=== PATIENT | female | born 1980 | race Two or more races ===

== ENCOUNTER 2017-05-21 16:58 | Emergency (ER) | payer OTHER ==
[~2017-05-21] VITALS: Ht 157.5 cm; Wt 86.2 kg
[2017-05-21] MEDS ORDERED: SITA100T PO (17:09)
[2017-05-21] MEDS ORDERED: VALS160T2 PO (17:09)
[2017-05-21 17:41] LABS: *URINE HCG, QUAL NEGATIVE (NEGATIVE)
[2017-05-21 17:42] LABS: *BILIRUBIN,URIN NEGATIVE (NEGATIVE); *BLOOD, URINE NEGATIVE (NEGATIVE); *COLOR,URINE YELLOW (YELLOW); *KETONES,URINE TRACE (NEGATIVE); *PROTEIN,URINE 2+ (NEGATIVE); *UROBILINOGEN,URINE 0.2 E.U./dl (NORMAL); LEUKOCYTE ESTERASE ,URINE TRACE (NEGATIVE); NITRITE, URINE NEGATIVE (NEGATIVE)
[2017-05-21 17:50] LABS: *CLARITY,URINE HAZY (CLEAR); UGLUCOSE 2+ (NEGATIVE)
[2017-05-21 17:52] LABS: MUCUS,URINE FEW /LPF (0-FEW); RBC,URINE 0-3 /HPF (0-3); SQUAMOUS EPITHELIAL CELL,UR MODERATE /HPF (NONE SEEN)
[2017-05-21] MEDS ORDERED: FLUCONAZOLE 100 MG TABLET PO ONE (18:00)
--- NOTE | 2017-05-21 18:05 | NUR ---
Pt seen by MD for vaginal discomfort, medicated as ordered. Prescription provided. Patient discharged home in stable conditon. Written and verbal after care instructions given. Patient verbalizes understanding of instructions.
[2017-05-21 18:08] VITALS: BP 130/94
[2017-05-21] MEDS ORDERED: FLUCONAZOLE 100 MG TABLET ONE (18:13)
== END 2017-05-21 18:09 | disposition home or self-care (01) ==
LOC: ER 16:59
DX: N76.0 Acute vaginitis (principal); E11.9 Type 2 diabetes mellitus without complications; I10 Essential (primary) hypertension
CPT/HCPCS: 84703; A4663

== ENCOUNTER 2024-09-18 15:48 | Emergency (ER) | payer BC, OTHER ==
[~2024-09-18] VITALS: Ht 157.5 cm; Wt 67.1 kg
[~2024-09-18 15:48] MED LIST: SITA100T PO; VALS160T2 PO
[2024-09-18] MEDS ORDERED: HYDR-3980 PO (17:21)
[2024-09-18] MEDS ORDERED: HYDROMORPHONE 1 MG/1 ML DISP.SYRIN ONE (17:22)
[2024-09-18] MEDS: HYDROMORPHONE 1 MG/1 ML DISP.SYRIN IM ONE (17:29)
[2024-09-18] MEDS: diphenhydrAMINE 50 MG/1 ML VIAL IM ONE (17:29)
[2024-09-18 17:46] VITALS: BP 127/77; TEMP 97.2; O2SAT 99
== END 2024-09-18 17:56 | disposition home or self-care (01) ==
LOC: ER 15:49
DX: M54.41 Lumbago with sciatica, right side (principal); E11.9 Type 2 diabetes mellitus without complications; K21.9 Gastro-esophageal reflux disease without esophagitis; Z79.84 Long term (current) use of oral hypoglycemic drugs; Z79.899 Other long term (current) drug therapy
CPT/HCPCS: 99283; 96372; J1171; A4606; A4663